=== PATIENT | female | born 1995 | race Hispanic/Latino ===

== ENCOUNTER 2018-04-11 11:26 | Outpatient (CLI) | payer BC | END 2018-04-11 11:27 | disposition home or self-care (01) | LOC: CTENTCT 11:26 | PROVIDERS: ATTEND Otolaryngology Plastic Surgery within the Head & Neck | DX: J32.9 Chronic sinusitis, unspecified (principal) | CPT/HCPCS: 70486 ==

== ENCOUNTER 2018-05-29 07:26 | Day surgery (SDC) | payer BC ==
[2018-05-28 11:34] VITALS: BMI 21.4
[2018-05-29] MEDS ORDERED: Oxymetazoline HCl 0.05% ( 15 ML ) ONE ×3 (08:17→09:13)
[2018-05-29] MEDS ORDERED: Midazolam HCl 2 mg/2 ml Vial ONE (08:17)
[2018-05-29] MEDS ORDERED: Lidocaine 1% w/Epinephrine 1:100K 30 ML VIAL ONE (09:12)
[2018-05-29] MEDS ORDERED: Bacitracin Zinc Ointment 30 gm TUBE ONE (09:13)
[2018-05-29] MEDS ORDERED: Meperidine HCl/PF 25 MG/ML VIAL ONE (09:14)
[2018-05-29] MEDS ORDERED: Fentanyl 100 MCG/2 ML VIAL ONE ×2 (09:14→10:50)
[2018-05-29] MEDS ORDERED: Famotidine/PF 20 mg/2ml Vial ONE (09:14)
[2018-05-29] MEDS ORDERED: Non-Formulary Medication 1 EACH PO PRN (11:13)
[2018-05-29] MEDS ORDERED: Ondansetron HCl/PF 4 MG/2 ML Vial IVP PRN (11:13)
[2018-05-29] MEDS ORDERED: Promethazine HCl 25 MG/ML VIAL IM/IV PRN (11:13)
[2018-05-29] MEDS ORDERED: Ondansetron HCl/PF 4 MG/2 ML Vial ONE (13:28)
[2018-05-29] MEDS ORDERED: PHENYLEPHRINE-NS 100 MCG/ML 10 ML SYRINGE ONE (13:28)
[2018-05-29] MEDS ORDERED: Ketorolac Tromethamine 30 MG/ML VIAL ONE (13:28)
[2018-05-29] MEDS ORDERED: Dexamethasone 20 MG/5 ML VIAL ONE (13:28)
[2018-05-29] MEDS ORDERED: Lidocaine 1% PF 5 ML VIAL ONE (13:28)
[2018-05-29] MEDS ORDERED: Succinylcholine Chloride 20 MG/ML 10 ml SYRINGE FS ONE (13:28)
[2018-05-29] MEDS ORDERED: PROPOFOL 200 MG/20 ML VIAL ONE (13:28)
--- NOTE | 2018-05-30 10:34 | OP ---
DATE OF PROCEDURE: 05/29/2018. PREOPERATIVE DIAGNOSES: 1. Chronic rhinosinusitis. 2. Nasal septal deviation. 3. Bilateral inferior turbinate hypertrophy. 4. Nasal obstruction. 5. Chronic adenotonsillitis. 6. Adenotonsillar hypertrophy. POSTOPERATIVE DIAGNOSES: 1. Chronic rhinosinusitis. 2. Nasal septal deviation. 3. Bilateral inferior turbinate hypertrophy. 4. Nasal obstruction. 5. Chronic adenotonsillitis. 6. Adenotonsillar hypertrophy. SURGEON: Dr. Olayinka Aguirre. PROCEDURES PERFORMED: 1. Bilateral endoscopic sinus surgery, total ethmoidectomies. 2. Bilateral endoscopic sinus surgery, maxillary antrostomies. 3. Bilateral endoscopic sinus surgery, frontal sinusotomies. 4. Nasal septoplasty. 5. Bilateral inferior turbinate submucosal resection. 6. Tonsillectomy and adenoidectomy. ESTIMATED BLOOD LOSS: 20 mL COMPLICATIONS: None. ANESTHESIA: GETA. PROCEDURE IN DETAIL: After consent was obtained, the patient was identified, brought to the operatin g room, and placed on the operating table in the supine position. General endotracheal anesthesia an d intravenous access was obtained and we proceeded with positioning the patient for oropharyngeal julee kelle. Oropharyngeal exposure was obtained with a Ciro-Colton mouth gag after a head drape was placed and secured with a towel clip. The Ciro-Colton mouth gag was then suspended from the Barragan tray and palatal elevation was achieved with a red rubber catheter. The right tonsil was addressed first. We used a curved Allis to grasp the tonsil and retract it medially as an anterior pillar incision was m kellie. The retrotonsillar fascial plane was then established and blunt dissection was performed with t he suction cautery. Blood vessels were anticipated, identified, and cauterized as they were encounte red. Ultimately, dissection was carried to the posterior tonsillar pillar mucosa which was incised h emostatically, as well as the base of tongue connection. The tonsil was then passed off as a specime n and bleeding points within the tonsillar bed were cauterized under direct visualization. We subsequ ently turned our attention to the contralateral side, where using a similar technique, a near identic al procedure was performed. Again, the tonsil was grasped and retracted medially with a curved Allis . The retrotonsillar fascial plane was established and while the anterior pillar was retracted media lly, the hemostatic blunt dissection of the tonsil with a suction cautery was performed with blood ve ssels anticipated, identified, and cauterized as they were encountered. Again, dissection continued to the base of tongue and posterior tonsillar pillar mucosa which was incised in a hemostatic fashion . The tonsillar beds were then carefully inspected and bleeding points were identified and cauterize d with a suction cautery. After this portion of the procedure, hemostasis was completely obtained. Under direct mirror visualization, we visualized the adenoid pad. Under direct mirror visualization, we removed the bulk of the adenoid tissue with the adenoid curette. We then packed the nasopharynx for an appropriate period of time with Fredo-Synephrine saturated tonsillar sponges. After a period of observation, we removed the pack. Under indirect mirror visualization, we obtained hemostasis and v aporization of residual adenoid tissue with electrocautery. The patient's oral cavity was copiously irrigated with iced saline and subsequently suctioned. After completion of the procedure, the nasal cavity and oropharynx were irrigated and suctioned as were the gastric contents. The patient was the n awakened and transferred to the recovery room where the patient remained in stable condition prior to discharge to Day Stay. Patient was taken to the operating room and placed supine on the table. General endotracheal anesthe maricel was obtained by the Anesthesia staff. Tube was secured in the left lower lip. Patient was then p laced in the beach chair position, and Afrin pledgets were placed in the nasal cavity. Injections of 1% lidocaine with 1:100,000 epinephrine were made into the nasal septum as well as the inferior turb inates. Patient was then prepped and draped in standard surgical fashion for nasal surgery. Followi ng this, the Afrin pledgets were removed. A Naylor incision was made on the left nasal septum. Sub mucoperichondrial dissection was performed. The deviated portions of the septum included portions of the cartilage and the bony septum. These isolated areas were removed using three cutting rongeurs. There was noted to be a large dorsal and caudal strut, left intact for support of the nose. The muc operichondrial flaps were then reapproximated using a 4-0 gut stitch. Any straight pieces of cartila ge were crushed prior to this and placed between the mucoperichondrial flaps. Following this, the in ferior turbinates were then punctured with a submucosal coblation wand, and submucosal coblations wer e performed of multiple areas of the inferior portion of the anterior inferior turbinate. Please note that the submucosal microdebrider was used to submucosally resect the anterior and inferi or portions of the inferior turbinates bilaterally. Following this, the 0 degree scope was advanced in the nasal cavity and middle turbinates were gently medialized. The uncinate process was identifie d and was anteriorly fractured using the ball-ended probe bilaterally. Following this, the microdebr ider and the upbiting Blakesley forceps were used to remove the uncinate bilaterally. Following this , the natural maxillary sinus ostia was identified using the ball-ended probe and was gently widened using the 0 degree microdebrider and straight Blakesley forceps. Following this, the ethmoidal bulla was punctured on its medial and inferior aspect and was removed bilaterally. The grand lamella was then identified and was punctured in the posterior ethmoidal cells using a blunt ended Cruz tip bi laterally. Working from posterior to anterior, the ethmoidal cells were opened in a mucosal-sparing technique. Following this, 45-degree scope along with the curved microdebrider was used to further r esect the frontal recess cells and identify the frontal sinus ostia bilaterally. The frontal sinus o stia was then widened bilaterally using the curved microdebrider and upbiting Blakesley forceps. Fol lowing this, the nasal cavity was irrigated. MeroPacks were placed within the middle meatus. Ham splints were placed and secured. The patient tolerated the procedure well.
== END 2018-05-29 13:20 | disposition home or self-care (01) ==
LOC: SDC 07:26
PROVIDERS: ATTEND Otolaryngology Plastic Surgery within the Head & Neck
PROC: 09TV8ZZ Resection of Left Ethmoid Sinus, Via Natural or Artificial Opening Endoscopic (ICD-10-PCS; principal; 2018-05-29)
PROC: 0C5QXZZ Destruction of Adenoids, External Approach (ICD-10-PCS; principal; 2018-05-29)
PROC: 0C5PXZZ Destruction of Tonsils, External Approach (ICD-10-PCS; principal; 2018-05-29)
PROC: 09BT8ZZ Excision of Left Frontal Sinus, Via Natural or Artificial Opening Endoscopic (ICD-10-PCS; principal; 2018-05-29)
PROC: 09TU8ZZ Resection of Right Ethmoid Sinus, Via Natural or Artificial Opening Endoscopic (ICD-10-PCS; principal; 2018-05-29)
PROC: 099R8ZZ Drainage of Left Maxillary Sinus, Via Natural or Artificial Opening Endoscopic (ICD-10-PCS; principal; 2018-05-29)
PROC: 09BS8ZZ Excision of Right Frontal Sinus, Via Natural or Artificial Opening Endoscopic (ICD-10-PCS; principal; 2018-05-29)
PROC: 095L8ZZ Destruction of Nasal Turbinate, Via Natural or Artificial Opening Endoscopic (ICD-10-PCS; principal; 2018-05-29)
PROC: 099Q8ZZ Drainage of Right Maxillary Sinus, Via Natural or Artificial Opening Endoscopic (ICD-10-PCS; principal; 2018-05-29)
PROC: 09SM0ZZ Reposition Nasal Septum, Open Approach (ICD-10-PCS; principal; 2018-05-29)
DX: J32.9 Chronic sinusitis, unspecified (principal); J34.2 Deviated nasal septum; J34.3 Hypertrophy of nasal turbinates; J35.03 Chronic tonsillitis and adenoiditis; J34.89 Other specified disorders of nose and nasal sinuses; J30.9 Allergic rhinitis, unspecified
CPT/HCPCS: 85014; 88304; 96374; J0131; J1100; J1885; J2001; J2175; J2250; J2405; J2704; J3010; J3490; S0028